=== PATIENT | female | born 1985 | race African-American/Black ===

== ENCOUNTER 2019-06-20 01:43 | Emergency (ER) | payer OTHER ==
[2019-06-20 02:19] VITALS: TEMP 98; BMI 29.1
--- NOTE | 2019-06-20 02:51 | PDOC ---
Attending Attestation - Resident Resident Name: BeanDavid - ED Attending Attestation I have performed the following: I have examined & evaluated the patient, The case was reviewed & discussed with the resident, I agree w/resident's findings & plan - HPI HPI: 06/20/19 05:00 see resident hpi - Physicial Exam PE: 06/20/19 05:00 agree with resident exam - Medical Decision Making 06/20/19 05:01 33-year-old female with chest pain Chest x-ray and EKG were unremarkable Patient improved after analgesics Will DC home with outpatient follow-up
[2019-06-20] MEDS ORDERED: IBUPROFEN 400 MG TABLET (FP) PO ONE ×2 (03:07→04:03)
--- NOTE | 2019-06-20 03:53 | PDOC ---
History of Present Illness - General Chief Complaint: Chest Pain Stated Complaint: CHEST PAIN Time Seen by Provider: 06/20/19 02:46 History Source: Patient Exam Limitations: No Limitations - History of Present Illness Initial Comments: HPI: 33 y/o female presenting to [facility] ER complaining of two days of intermittent left upper outer chest pain. Nonradiating. Reproducible with direct palpation. 3x episodes each lasting approx. 5-10 minutes. Tonight's episodes started while driving her car. No change with exertion. Denies palpitations. Denies trauma to the area, though pt has bruise to left upper arm; reportedly from hitting a door. No OTC medications trialed. Pt endorses recent cough and URI symptoms, which began to resolve on of last week. Family Hx: - No h/o of CAD or MO under age 45 Social Hx: - EtoH: Last drank to excess two nights ago - Tobacco: Denies - Marijuana usage 1.5 months ago Medical Hx: - Pt denies past medical history. Denies prescription medications. Surgical Hx: - Pt denies past surgical history. Review of Systems: In addition to that documented in the HPI above, the additional ROS was obtained : Constitutional- Denies fevers or chills Head- Denies vision changes ENMT- Denies sore throat CV- Per HPI Resp- Denies SOB GI- Denies vomiting or diarrhea - Denies painful urination MSK- Denies recent trauma Skin- Denies new rashes Neuro- Denies new numbness or tingling or weakness Endocrine- Denies polyuria Heme- Denies bleeding or bruising Physical Examination: Constitutional- Well-developed, well-nourished adult female in no acute distress or obvious discomfort. Found semi-fowlers on hospital bed. Answered all questions appropriately and completely. Head- Normocephalic. No obvious external signs of trauma. Cardiovascular / Chest- Regular rate and regular rhythm. No murmur, rubs, clicks , or gallops. Peripheral pulses- radial pulses full. Pain to left upper, outer chest with palpation. No pain with active ROM of left upper extremity. No skin lesions. No sternal pain. No pretibial edema. Respiratory- Breathing unlabored. Infrequent cough during interview. Equal chest rise and fall. Clear to auscultation bilaterally. No stridor, no wheezing , no rhonchi. Gastrointestinal- abdomen is soft, non-tender, non-distended. Neuro- Alert and oriented x4. Moving all four extremities spontaneously. Skin- Warm, dry, and intact. No bruising, rashes, or other lesions. Psych- Affect- appropriate. Mood- normal. Speech was non-labored, non- pressured. MDM: *Reviewed vital signs, nursing notes, and prior visit documentation (if available). 33 y/o female presenting with intermittent and reproducible left upper, outer chest pain. Recent URI illness. No exertional symptoms. Afebrile. Vitals unremarkable for hypotension or tachycardia. Physical exam as described above. EKG unremarkable for ischemic findings. CXR unremarkable for acute cardiopulmonary findings per ED wet read. Given Motrin with improvement of symptoms. Suspect likely MSK pain versus mild costochondritis. Discussed xray and EKG findings with pt . Answered all questions. Provided strict return precautions. Pt expressed verbal understanding and agreement with plan to discharge home with outpatient follow up. Provided copies of today s EKG. Encouraged close PCP f/u in next 2-3 days. David Bean M.D., PGY2 Emergency Medicine Resident Past History - Past Medical History Allergies/Adverse Reactions: Allergies Allergy/AdvReac Type Severity Reaction Status Date / Time No Known Allergies Allergy Verified 12/20/12 10:33 Home Medications: Ambulatory Orders Clotrimazole/Betamet Diprop [Lotrisone Cream] 1 tip TP BID #45 cream..g. No Home Medications 0 dose .ROUTE UTDICT 12/20/12 - Psycho Social/Smoking Cessation Hx Smoking Status: No Smoking History: Never smoked Number of Cigarettes Smoked Daily: 0 Information on smoking cessation initiated: No *Physical Exam - Vital Signs Last Vital Signs Temp Pulse Resp BP Pulse Ox 98.0 F 81 20 117/85 100 06/20/19 01:50 06/20/19 01:50 06/20/19 01:50 06/20/19 01:50 06/20/19 01:50 ED Treatment Course - RADIOLOGY Radiology Studies Ordered: Category Date Time Status CHEST PA & LAT [RAD] Stat Radiology 06/20/19 03:10 Ordered Discharge - Discharge Information Problems reviewed: Yes Clinical Impression/Diagnosis: Atypical chest pain Condition: Improved Disposition: HOME - Admission No - Follow up/Referral Referrals: Sonia Issa [Primary Care Provider] - - Patient Discharge Instructions Patient Printed Discharge Instructions: DI for Atypical Chest Pain Additional Instructions: You were seen today for upper, outer left sided chest pain. Your xray and EKG were normal today. Your pain is likely a muscle pain or inflammation surrounding your sternum, which can be caused by your recent respiratory illness. Either cause will likely get better over the next few days. You can take over the counter Advil, Aleve, Ibuprofen as needed for pain. Take as directed on the package insert. Do not exceed the recommended dosage. Follow up with your primary care doctor within the next 2-3 days. You will need to call to make an appointment. The number is included in this packet. A copy of todays results are attached to this packet. Take it to the appointment so your doctor can review them. Go to the nearest emergency department if your condition worsens or you feel like you need additional emergency evaluation. Print Language: WOLOF - Post Discharge Activity Work/Back to School Note: Back to Work
[2019-06-20 05:55] VITALS: BP 115/82; PULSE 76
--- NOTE | 2019-06-20 11:04 | EKG ---
Test Reason : Blood Pressure : / mmHG Vent. Rate : 075 BPM Atrial Rate : 075 BPM P-R Int : 142 ms QRS Dur : 082 ms QT Int : 388 ms P-R-T Axes : 061 076 060 degrees QTc Int : 433 ms NORMAL SINUS RHYTHM WITH SINUS ARRHYTHMIA NORMAL ECG NO PREVIOUS ECGS AVAILABLE Confirmed by Satya Plascencia MD ([id number]) on 06/20/2019 11:04:22 AM Referred By: Confirmed By:Satya Plascencia MD
== END 2019-06-20 05:00 | disposition home or self-care (01) ==
LOC: JER 01:43
DX: R07.9 Chest pain, unspecified (principal)
CPT/HCPCS: 71046-TC-FY; 84703; 93005; 93010; 99282-25